=== PATIENT | male | born 1960 | race Two or more races ===

== ENCOUNTER 2020-04-27 12:22 | Emergency (ER) | payer MEDICAID ==
[~2020-04-27] VITALS: Ht 170.2 cm; Wt 79.4 kg
--- NOTE | 2020-04-27 12:36 | NUR ---
[facility]. TO ER BED 5. AAOX2. NOT IN RESP DISTRESS. BED BOUND. W/ NOTED L SIDED DEFICIT FROM A HISTORY OF CVA. PT WAS BROUGHT IN FOR HAVING SEIZURE THIS MORNING, NO INFORMATION WAS OBTAINED REGARDING THE SEIZURE BUT REPORTED WITNESSED. NO ORAL TRAUMA NOTED. PT PLACED ON MONITOR. AWAITING MD FOR EVAL.
--- NOTE | 2020-04-27 12:40 | NUR ---
PT PLACED ON SEIZURE PRECAUTION, PADDED SIDERAILS
--- NOTE | 2020-04-27 13:00 | NUR ---
blood drawn by labor relations manager
--- NOTE | 2020-04-27 13:20 | NUR ---
PT TO CT ON KUMAR
[2020-04-27 13:22] LABS: BASOPHILS # (AUTO) 0.1 /CMM (0.0-0.2); BASOPHILS % (AUTO) 0.6 % (0.0-2.0); EOSINOPHILS % (AUTO) 1.3 % (0.0-6.0); HEMATOCRIT 41 % (39-51); HEMOGLOBIN 13.4 g/dL (13.5-17.5); LYMPHOCYTES # (AUTO) 2.8 /CMM (0.8-4.8); LYMPHOCYTES % (AUTO) 23.3 % (20.0-44.0); MEAN CORPUSCULAR HGB CONC 32 g/dl (31.0-36.0); MEAN CORPUSCULAR VOLUME 94 fL (80-96); MONOCYTES # (AUTO) 0.8 /CMM (0.1-1.30); MONOCYTES % (AUTO) 6.6 % (2.0-12.0); NEUTROPHILS # (AUTO) 8.1 /CMM (1.8-8.9); NEUTROPHILS % (AUTO) 68.2 % (43.0-81.0); PLATELET COUNT (AUTO) 215 /CMM (150-450); RED BLOOD CELL COUNT(AUTO) 4.41 MIL/uL (4.5-6.0); WHITE BLOOD COUNT (AUTO) 11.9 K/uL (4.3-11.0)
[2020-04-27 13:29] LABS: CALCIUM, SERUM 8.6 mg/dL (8.5-10.1); POTASSIUM 3.2 mmol/L (3.5-5.1)
[2020-04-27] MEDS ORDERED: IV NS 0.9% 1,000 ML IV ONE (16:00)
[2020-04-27] MEDS ORDERED: LEVETIRACETAM (500MG) 1,000 MG in IV NS 0.9% 100 ML IV SCH (16:00)
[2020-04-27] MEDS ORDERED: POTASSIUM CHLORIDE 20 MEQ TAB.PRT.SR PO ONE ×2 (16:00→16:06)
[2020-04-27] MEDS ORDERED: LEVETIRACETAM (250 MG) 250 MG TABLET PO ONE ×2 (16:43→17:00)
--- NOTE | 2020-04-27 16:45 | NUR ---
PT IS HARD STICK. TRIED MULTIPLE TIMES BUT NO SUCCESS. MD WAS MADE AWARE AND CHANGED IV KEPRA TO KEPRA 1000MG PO X 1 DOSE. FLUID CANCELLED. ORDERS NOTED AND CARRIED OUT
--- NOTE | 2020-04-27 17:43 | NUR ---
CALLED [facility] ETA [phone]
--- NOTE | 2020-04-27 18:12 | NUR ---
[facility]: [phone]
--- NOTE | 2020-04-27 18:12 | NUR ---
CALLED [facility] TO INFORM PT IS GOING BACK. SPOKE WITH ADE - HUMAN RESOURCE STATISTICIAN.
--- NOTE | 2020-04-27 19:23 | NUR ---
[facility] 30 AT BEDSIDE FOR PT TRANSPORT BACK TO HIS [facility]. PT IS IN STABLE CONDITION. REPORT GIVEN TO AMBULANCE STAFF.
[2020-04-27 19:24] VITALS: BP 131/81
== END 2020-04-27 19:25 | disposition home or self-care (01) ==
LOC: ER 12:26
DX: G40.909 Epilepsy, unspecified, not intractable, without status epilepticus (principal); E87.6 Hypokalemia; D64.9 Anemia, unspecified; I10 Essential (primary) hypertension; Z86.73 Personal history of transient ischemic attack (TIA), and cerebral infarction without residual deficits
CPT/HCPCS: 36415; 70450; 80048; 85025; 99284; J1953; J7030 ×2